=== PATIENT | male | born 1965 | race African-American/Black ===

== ENCOUNTER 2017-04-26 06:21 | Day surgery (SDC) | payer BC ==
[2017-04-10 17:52] VITALS: BMI 28.3
--- NOTE | 2017-04-25 17:56 | HP ---
DATE OF ADMISSION: 04/26/2017 DATE OF SURGERY: 04/26/2017 ADMISSION DIAGNOSIS: Chronic ethmoid and maxillary sinusitis, deviated septum, inferior turbinate hypertrophy. HISTORY OF PRESENT ILLNESS: This 52-year-old gentleman has had a longstanding history of nasal and sinus problems. He has primarily left-sided problems with pain and pressure as well as congestion and yellow mucoid drainage which is sometimes green. He gets a bad taste in his throat from thick post-nasal drainage. His sense of smell is fair. He has been on numerous antibiotics including a 28-day course of Cefdinir which did not give him significant improvement. He has had serial scans demonstrating an opacified left maxillary sinus for several years. Exam also demonstrates nasal polyp as well as marked deviation of the septum and turbinate hypertrophy. He is now admitted for surgery. PAST MEDICAL HISTORY: Primary medical doctor is Moriah Rick MD. Medical illnesses: Allergic rhinitis; diabetes, type 2; hypertension; and vertigo. MEDICATIONS: Include Ariadne, fluticasone. ALLERGIES: He has a swelling reaction to LISINOPRIL, which may be angioedema. PAST SURGICAL HISTORY: Includes tonsillectomy at age 5. He also had anesthesia for his dental treatment. BLEEDING HISTORY: Negative. FAMILY HISTORY: Negative for bleeding problems. His brother possibly had an anesthesia-related problem, possibly aspiration after surgery for a motorcycle accident. PHYSICAL EXAMINATION: General: Patient is a well-developed male in no acute distress. HEENT: Head is normal. Eyes are clear. Ears are unremarkable. The nose has markedly deviated septum to the left. Inferior turbinates are enlarged. There is a moderate-size polyp obstructing the left nasal airway, and these emanate from the middle meatus, and they are also visible in the sphenoethmoidal recess. The mouth and throat are unremarkable. CT scan of the paranasal sinuses performed at [facility] on August 29, 2016, demonstrated a totally opacified left maxillary antrum with effacement of the uncinate process consistent with chronic sinusitis. There is also primarily left-sided ethmoid sinus mucosal thickening. Polyps are present. There is moderate deviation of the septum to the left. IMPRESSION: Chronic sinusitis, deviation of the septum, and inferior turbinate hypertrophy. PLAN: Endoscopic sinus surgery to address ethmoid and maxillary sinuses as well as nasal septoplasty and submucous resection of inferior turbinates using image guidance. INFORMED CONSENT: Patient understands the indications, alternatives, nature, risks, and benefits of proposed surgery. Potential complications including, but not limited to, anesthesia, bleeding, infection, recurrence, numbness, hole in the septum, reduced sense of smell, eye injury, and brain injury were discussed in detail. He understands and accepts these risks and wishes to proceed with surgery. Questions were answered fully. ZAIN DÍAZ M.D. [id number]
[2017-04-26] MEDS ORDERED: BACITRACIN 15 GM TUBE TOPICAL OINTMENT ONE (07:35)
[2017-04-26] MEDS ORDERED: COCAINE HCL 4% TOPICAL SOLUTION 4 ML BOTTLE TP ONE ×2 (07:44→08:21)
[2017-04-26] MEDS ORDERED: LIDOCAINE 1%/EPI 1:100000 (20 ML MULTI DOSE VIAL) ONE (08:00)
--- NOTE | 2017-04-26 08:01 | HP ---
History & Physical Update - History History: No Change - Physical Physical: No Change - Assessment Assessment: No Change - Plan Plan: No Change
[2017-04-26] MEDS ORDERED: ceFAZolin SODIUM 1 GM VIAL IVPB ONE (08:16)
[2017-04-26] MEDS ORDERED: LIDOCAINE 1%/EPI 1:100000 (50 ML MULTI DOSE VIAL) INF ONE (08:21)
[2017-04-26] MEDS ORDERED: PROMETHAZINE HCL 25 MG/1 ML VIAL IVPUSH PRN (09:50)
[2017-04-26] MEDS ORDERED: oxyCODONE HCL 5 MG TABLET PO PRN (09:50)
[2017-04-26] MEDS ORDERED: ONDANSETRON 4 MG/2 ML VIAL IVPUSH PRN (09:50)
[2017-04-26] MEDS ORDERED: LACTATED RINGERS SOLUTION 1,000 ML IV SCH (10:00)
[2017-04-26] MEDS ORDERED: BACITRACIN 15 GM TUBE TOPICAL OINTMENT TP ONE (10:29)
[2017-04-26] MEDS ORDERED: TRIMETHOBENZAMIDE HCL 200MG/2ML INJ IM PRN (10:39)
--- NOTE | 2017-04-26 10:45 | OP ---
Operative Note - Note: Operative Date: 04/26/17 ([id number]) Pre-Operative Diagnosis: chronic maxillary and ethmoid sinusitis, deviated septum, inferior turbinate hypertrophy Operation: bilateral endoscopic ethmoidectomy, anterior, bilateral endoscopic maxillary antrostomy, with removal of tissue left (complex), nasal septoplasty, submucus resection of right inferior turbinate, therapeutic outfracture of left inferior turbinate with mural cauterization, image guidance Findings: extensive left maxillary sinusitis with pus and infected tissue, significant left polyposis, ethmoid sinusitis, deviated septum to left bony and cartilagenous, significant right inferior turbinate bony hypertrophy Implants: none Post-Operative Diagnosis: Same as Pre-op Surgeon: Myles Burgess Anesthesiologist/BENEFITS SPECIALIST RECRUITER: Amarilis Yeboah MD Anesthesia: General Specimens Removed: left nasal polyp, ethmoid and maxillary sinus tissue; right ethmoid sinus tissue; nasal septum; right inferior turbinate; bilateral ethmoid tissue (suction trap) Estimated Blood Loss (mls): 75 Blood Volume Replaced (mls): 0
[2017-04-26 11:50] VITALS: TEMP 99
[2017-04-26 14:44] VITALS: BP 135/80; PULSE 65
--- NOTE | 2017-04-26 23:21 | OP ---
DATE OF OPERATION: 04/26/2017 PREOPERATIVE DIAGNOSIS: Chronic maxillary and ethmoid sinusitis, deviated septum, inferior turbinate hypertrophy. PREOPERATIVE DIAGNOSIS: Chronic maxillary and ethmoid sinusitis, deviated septum, inferior turbinate hypertrophy. PROCEDURE: Bilateral endoscopic ethmoidectomy, anterior. Bilateral endoscopic maxillary antrostomy, with removal of tissue left (complex), nasal septoplasty, submucous resection of right inferior turbinate, therapeutic outfracture of left inferior turbinate with cauterization, image guidance. SURGEON: Zain Burgess M.D. ANESTHESIOLOGIST: Amarilis Yeboah M.D. ANESTHESIA: General via endotracheal tube. INDICATION: This 52-year-old male has had longstanding nasal and sinus problems which have failed to improve with appropriate medical therapy including a 28-day course of oral antibiotics. He has had obstruction, pain and pressure as well as drainage with a bad taste. Examination shows deviation of septum left as well as nasal polyposis on the left. CT scan demonstrates chronic sinusitis of the ethmoid maxillary sinuses with significant opacification of the left maxillary sinus with bowing of the medial wall. He is now brought to surgery for treatment. FINDINGS: Extensive left maxillary sinusitis with pus and infected tissue, significant left-sided polyposis, bilateral ethmoid sinusitis, deviated septum to the left, bony and cartilaginous, significant right inferior turbinate bone hypertrophy. PROCEDURE: Patient is brought to the operating room, placed on the operating table in supine position. General endotracheal anesthesia was induced to satisfactory level. He was prepped and draped in the usual fashion for surgery. The nose was inspected. Deviation of the septum was seen as well as turbinate hypertrophy primarily on the right side. Polyps were visible. Lidocaine 1% with epinephrine 1:100,000 was infiltrated in the antral septum. Cocaine 4% was packed in the nasal cavity with cottonoids. The [employer] image guidance system was utilized with the patient's CAT scan data. Registration was completed, and image guidance was used intermittently throughout the case to identify surgical landmarks and areas of dissection. A 0-degree telescope was then used and the nasal cavities inspected. The nasal septum was moderately deviated to the left side of obstruction. There was an inferior deviation and it went more further posteriorly. Significant left nasal polyposis was seen emanating from the middle meatus and posteriorly toward the nasopharynx. Significant inferior turbinate hypertrophy was present primarily on the right side. The nasopharynx was clear with a scar from prior adenoidectomy. Lidocaine with epinephrine was infiltrated in the middle turbinate and lateral nasal osorio. Additional cocaine 4% was packed up in the middle meatus. The right paranasal sinuses first addressed. The uncinate process was drawn forward and incised with a backbiting forceps, ethmoid forceps and the microdebrider was then used to remove the rest of the uncinate process and to perform anterior ethmoidectomy. The lamina papyracea and the fovea ethmoidalis were preserved, mildly diseased tissue was spared. The natural ostium was enlarged. The anterior of the right maxillary sinus was slightly edematous, but there were no irreversible lesions. Attention was then turned toward the left paranasal sinuses. Significant polyposis was removed piecemeal with the forceps. Anterior ethmoidectomy was performed with the ethmoid forceps and the microdebrider. The lamina papyracea and the fovea ethmoidalis were preserved. The fontanelle region was somewhat bulging and inflamed. A distinct ostium was not visible. Middle meatal antrostomy is created with the forceps. Maxillary sinus is entered. It is completely full of infected tissue as well as pus. A large amount of infected tissue was then removed from the left maxillary sinus using a combination of the 45-degree, 90-degree forceps as well as the 70-degree and 110-degree forceps. In addition to sending this tissue to pathology for routine studies, additional tissue was sent to microbiology for culture. The sinus was intermittently irrigated with saline. Eventually most of the maxillary sinus became . There was minimal residual edematous tissue primarily anteriorly. After completion of sinus treatment, attention was turned to the nasal septum. A right nasal septal incision was created. A right mucoperichondrial flap was elevated. Bony cartilaginous structure was identified, . Bilateral mucoperiosteal flaps are elevated. The inferior spur was primarily bony and cartilaginous. The inferior strip of cartilage was incised and removed. Deviated maxillary crest was then removed with the osteotome. Deviated vomer and perpendicular plate of the ethmoid was also removed with the forceps. After these maneuvers, the nasal septum was in a more midline position. Some cartilage was then scored to unbend it and then placed in the pocket to reconstitute the third layer. The incision was then closed with 4-0 chromic and a quilting suture of 4-0 chromic was also placed. Finally attention was turned to the inferior turbinates. The left inferior turbinate was minimally hypertrophic. This had already been indented by the deviated septum. Therapeutic outfracture and cauterization was performed with suction cautery. Finally, the right inferior turbinate was injected with lidocaine and epinephrine. An anterior incision was created and the inferior turbinate bone exposed. The elevator was used to separate the overlying soft tissue from the markedly hypertrophic and thickened turbinate bone. This was then removed in a submucous fashion for a distance of approximately 3 cm. Submucosal cauterization was performed with suction cautery. The turbinate incision was then closed with 4-0 chromic sutures. Final inspection demonstrated good hemostasis. Septum was straight, inferior airways were very patent, and the ethmoid maxillary sinuses were open. dressings were placed within the ethmoid bed. Folded Telfa gauze coated with bacitracin and joined with a silk suture were placed in the inferior nasal cavities. Patient tolerated the procedure well. He was then awakened from general anesthesia, transferred to PACU in stable condition. Estimated blood loss was 75 mL. He received crystalloid during the procedure. Specimens were sent to pathology including left nasal polyp, ethmoid maxillary sinus tissue, right ethmoid tissue, nasal septal tissue, and left inferior turbinate tissue which are all sent to pathology for routine studies. In addition, left maxillary sinus tissue was sent for culture to microbiology. There are no complications. ZAIN BURGESS M.D. [id number]
--- NOTE | 2017-05-02 11:55 | PATH ---
Surgical Pathology Report Patient Name: JOSE PHILLIPS [facility]. Rec. #: [id number] /Age/Gender: 1965 (Age: 52) / M Account: [id number] Location: [facility] SURGICAL Taken: 04/26/2017 Received: 04/26/2017 Reported: 05/02/2017 Physicians: Myles Burgess M.D. Specimen(s) Received A: RIGHT ETHMOID TISSUE B: LEFT ETHMOID TISSUE AND MAXILLARY POLYPOID TISSUE C: NASAL SEPTUM D: INFERIOR TURBINATE TISSUE E: BILATERAL ETHMOID TISSUE Clinical History Deviated nasal septum, chronic ethmoid and maxillary sinusitis, turbinate hypertrophy Final Diagnosis A. ETHMOID, RIGHT, EXCISION: FRAGMENTS OF RESPIRATORY MUCOSA WITH MILD CHRONIC INFLAMMATION AND BONE. B. ETHMOID AND MAXILLARY POLYPOID TISSUE, LEFT, EXCISION: FRAGMENTS OF SCHNEIDERIAN PAPILLOMA, INFLAMED, FAVOR INVERTED TYPE. C. NASAL SEPTUM, EXCISION: FRAGMENTS OF CARTILAGE AND BONE. D. INFERIOR TURBINATE, EXCISION: FRAGMENTS OF RESPIRATORY MUCOSA WITH MILD CHRONIC INFLAMMATION, FIBROUS TISSUE AND BONE. E. ETHMOID, BILATERAL, EXCISION: FRAGMENTS OF SCHNEIDERIAN PAPILLOMA, FAVOR INVERTED TYPE. FRAGMENTS OF RESPIRATORY MUCOSA WITH MILD CHRONIC INFLAMMATION. Electronically Signed Stefany Taylor M.D. Gross Description A. Received in formalin labeled "right ethmoid tissue," is a 0.8 x 0.7 x 0.2 cm aggregate of agosto soft tissue and possible bone fragments. The specimen is submitted in toto in one cassette, following decalcification. B. Received in formalin labeled "left ethmoid polyp and tissue," is a 6.5 x 6.0 x 0.5 cm aggregate of agosto polypoid soft tissue fragments. A small business sales representative portion is submitted in 3 cassettes. C. Received in formalin labeled "nasal septum," is a 1.3 x 1.2 x 0.3 cm aggregate of agosto fragments of cartilage and bone. The specimen is submitted in toto in one cassette, following decalcification. D. Received in formalin labeled "inferior turbinate tissue," is a 1.8 x 1.5 x 0.3 cm aggregate of agosto soft tissue and bone fragments. The specimen is submitted in toto in one cassette, following decalcification. E. Received in formalin labeled "bilateral ethmoid tissue," is a 1.8 x 1.7 x 0.3 cm aggregate of agosto soft tissue fragments admixed with blood clot. The specimen is submitted in toto in one cassette. 04/27/201704/27/2017
== END 2017-04-26 14:43 | disposition home or self-care (01) ==
LOC: JASU-SURG 06:21
PROVIDERS: ATTEND Otolaryngology
PROC: 09BV8ZZ Excision of Left Ethmoid Sinus, Via Natural or Artificial Opening Endoscopic (ICD-10-PCS; 2017-04-26)
PROC: 09BU8ZZ Excision of Right Ethmoid Sinus, Via Natural or Artificial Opening Endoscopic (ICD-10-PCS; 2017-04-26)
PROC: 099R8ZZ Drainage of Left Maxillary Sinus, Via Natural or Artificial Opening Endoscopic (ICD-10-PCS; 2017-04-26)
PROC: 099Q8ZZ Drainage of Right Maxillary Sinus, Via Natural or Artificial Opening Endoscopic (ICD-10-PCS; 2017-04-26)
PROC: 09BM8ZZ Excision of Nasal Septum, Via Natural or Artificial Opening Endoscopic (ICD-10-PCS; 2017-04-26)
PROC: 09SL8ZZ Reposition Nasal Turbinate, Via Natural or Artificial Opening Endoscopic (ICD-10-PCS; 2017-04-26)
PROC: 8E09XBZ Computer Assisted Procedure of Head and Neck Region (ICD-10-PCS; principal; 2017-04-26 08:00)
DX: J32.0 Chronic maxillary sinusitis (principal); J32.2 Chronic ethmoidal sinusitis; J34.2 Deviated nasal septum; J34.3 Hypertrophy of nasal turbinates
CPT/HCPCS: 87070; 87075; 87184; 87186; 87205; 88304-TC; 88305-TC; 88311-TC; 94760

== ENCOUNTER 2020-11-04 04:19 | Day surgery (SDC) | payer BC ==
[2020-11-03 11:14] VITALS: BMI 29.1
[2020-11-04 09:12] LABS: PH,URINE 5.5 (5.0-8.0); URINE APPEARANCE CLEAR; URINE BILIRUBIN NEGATIVE (NEGATIVE); URINE COLOR YELLOW; URINE GLUCOSE (UA) NEGATIVE (NEGATIVE); URINE KETONE TRACE (NEGATIVE); URINE LEUK ESTERASE NEGATIVE (NEGATIVE); URINE NITRITE NEGATIVE (NEGATIVE); URINE PROTEIN TRACE (NEGATIVE)
[2020-11-04 09:25] LABS: INR 0.95 (0.83-1.09); PROTHROMBIN TIME (PATIENT) 11.5 SEC (9.7-13.0)
[2020-11-04 09:27] LABS: ACTIVATED PTT 30.6 SECONDS (25.2-36.5)
[2020-11-04] MEDS ORDERED: ROPIVACAINE HCL 0.5% 30ML VIAL ONE (09:39)
[2020-11-04] MEDS ORDERED: MIDAZOLAM HCL 2 MG/2 ML SINGLE DOSE VIAL ONE ×3 (09:40→10:15)
[2020-11-04] MEDS ORDERED: ceFAZolin 2 GRAM PREMIX BAG IVPB ONE (10:16)
[2020-11-04] MEDS ORDERED: ceFAZolin SODIUM 1 GM VIAL ONE (10:17)
[2020-11-04] MEDS ORDERED: oxyCODONE HCL 5 MG TABLET PO PRN ×2 (10:43)
[2020-11-04] MEDS ORDERED: ONDANSETRON 4 MG/2 ML VIAL IVPUSH PRN (10:43)
[2020-11-04] MEDS ORDERED: LACTATED RINGERS SOLUTION 1,000 ML IV SCH (10:45)
[2020-11-04] MEDS ORDERED: PROPOFOL 20 ML ONE (10:52)
[2020-11-04 13:27] VITALS: BP 143/84; PULSE 70; TEMP 98.2
== END 2020-11-04 13:10 | disposition home or self-care (01) ==
LOC: JASU-SURG 04:19
PROVIDERS: ATTEND Orthopaedic Surgery
PROC: 0PB94ZZ Excision of Right Clavicle, Percutaneous Endoscopic Approach (ICD-10-PCS; 2020-11-04)
PROC: 0RNJ4ZZ Release Right Shoulder Joint, Percutaneous Endoscopic Approach (ICD-10-PCS; principal; 2020-11-04 10:30)
PROC: 0LQ14ZZ Repair Right Shoulder Tendon, Percutaneous Endoscopic Approach (ICD-10-PCS; 2020-11-04 10:30)
DX: M75.101 Unspecified rotator cuff tear or rupture of right shoulder, not specified as traumatic (principal)
CPT/HCPCS: 36415; 81003; 85610; 85730; 94760

== ENCOUNTER 2022-10-25 10:46 | Emergency (ER) | payer OTHER, BC ==
[2022-10-25 10:55] VITALS: BP 155/97; PULSE 86; RESP 18; TEMP 98.1; BMI 30.3
[2022-10-25] MEDS ORDERED: IBUPROFEN 600 MG TABLET (FP) PO ONE ×2 (11:41→12:00)
[2022-10-25] MEDS ORDERED: CYCLOBENZAPRINE HCL 10 MG TABLET (FP) PO ONE (11:41)
[2022-10-25] MEDS ORDERED: ACETAMINOPHEN 500 MG TABLET (FP) PO ONE (11:41)
[2022-10-25] MEDS ORDERED: LIDOCAINE 5% TOPICAL PATCH TP ONE (11:42)
[2022-10-25] MEDS ORDERED: CYCLOBENZAPRINE HCL 10 MG TABLET (FP) ONE (11:59)
[2022-10-25] MEDS ORDERED: LIDOCAINE 5% TOPICAL PATCH ONE (11:59)
[2022-10-25] MEDS ORDERED: ACETAMINOPHEN 500 MG TABLET (FP) ONE (12:00)
[2022-10-25] MEDS ORDERED: LIDOCAINE PATCH REMOVAL MC SCH (22:00)
== END 2022-10-25 12:26 | disposition home or self-care (01) ==
LOC: JERFT 10:46
DX: M25.511 Pain in right shoulder (principal); M54.2 Cervicalgia
CPT/HCPCS: 99282-25

== ENCOUNTER 2023-11-04 00:36 | Emergency (ER) | payer BC, OTHER ==
[2023-11-04 00:53] VITALS: TEMP 98; BMI 30.3
[2023-11-04] MEDS ORDERED: ACETAMINOPHEN 325 MG TABLET (FP) ONE ×2 (01:38→07:14)
[2023-11-04] MEDS ORDERED: LIDOCAINE 4% PATCH TP ONE (01:39)
[2023-11-04] MEDS: ACETAMINOPHEN 325 MG TABLET (FP) PO ONE (01:41)
[2023-11-04] MEDS: LIDOCAINE 5% TOPICAL PATCH TP ONE (01:41)
[2023-11-04] MEDS: LIDOCAINE PATCH REMOVAL MC ONE (04:31)
[2023-11-04 05:16] LABS: BASO % 0.5 % (0-2.0); EOS % 0.3 % (0-4.5); HEMATOCRIT 39.4 % (35.4-49); HEMOGLOBIN 12.9 GM/dL (11.7-16.9); LYMPH % 11.4 % (8-40); MCH 28.4 pg (25.7-33.7); MCHC 32.8 g/dl (32.0-35.9); MEAN CELL VOLUME 86.5 fl (80-96); MEAN PLT VOLUME 7.6 fl (7.5-11.1); MONO % 5.7 % (3.8-10.2); NEUT % 82.1 % (42.8-82.8); PLATELET COUNT 369 10^3/uL (134-434); RBC 4.56 M/mm3 (4.00-5.60); RDW 13.4 % (11.9-15.9); WHITE BLOOD COUNT 12.5 K/mm3 (4.0-10.0)
[2023-11-04 05:18] LABS: POTASSIUM 4.5 mmol/L (3.5-5.1)
[2023-11-04 05:20] LABS: CALCIUM 9.8 mg/dL (8.5-10.1)
[2023-11-04 05:21] LABS: ALBUMIN 4.5 g/dl (3.4-5.0); BLOOD UREA NITROGEN 17.1 mg/dL (7-18)
[2023-11-04 05:23] LABS: CREATININE 1.1 mg/dL (0.55-1.3)
[2023-11-04 05:25] LABS: BILIRUBIN,TOTAL 0.5 mg/dL (0.2-1)
[2023-11-04 05:26] LABS: TOT PROT 8.5 g/dl (6.4-8.2)
[2023-11-04] MEDS: ACETAMINOPHEN 500 MG TABLET (FP) PO ONE (07:19)
[2023-11-04] MEDS ORDERED: KETOROLAC TROMETHAMINE 30 MG/1 ML VIAL ONE (11:13)
[2023-11-04 11:14] VITALS: BP 137/80; PULSE 66; RESP 20
[2023-11-04] MEDS: KETOROLAC TROMETHAMINE 30 MG/1 ML VIAL IM ONE (11:23)
== END 2023-11-04 14:04 | disposition home or self-care (01) ==
LOC: JER 00:36
PROC: 3E0233Z Introduction of Anti-inflammatory into Muscle, Percutaneous Approach (ICD-10-PCS; principal; 2023-11-04)
DX: S80.911A Unspecified superficial injury of right knee, initial encounter (principal); M25.561 Pain in right knee; W10.9XXA Fall (on) (from) unspecified stairs and steps, initial encounter
CPT/HCPCS: 36415; 73502-TC-RT-FY; 73560-TC-RT-FY; 75635-TC; 80053; 85025; 99285-25; Q9967

== ENCOUNTER 2023-11-23 07:55 | Day surgery (SDC) | payer BC ==
[2023-11-20 09:48] VITALS: BMI 29.7
[2023-11-23] MEDS ORDERED: LIDOCAINE HCL/PF 2% SDV 5ML VIAL ONE (08:11)
[2023-11-23] MEDS ORDERED: MIDAZOLAM HCL 2 MG/2 ML SINGLE DOSE VIAL ONE (08:11)
[2023-11-23] MEDS ORDERED: PROPOFOL 20 ML ONE ×3 (08:11→11:54)
[2023-11-23] MEDS ORDERED: DEXAMETHASONE SOD PHOSPHATE 4 MG/1 ML VIAL ONE (08:15)
[2023-11-23] MEDS ORDERED: BUPIVACAINE HCL/PF 0.5% (5MG/ML) 10 ML VIAL ONE (09:15)
[2023-11-23] MEDS ORDERED: ceFAZolin SODIUM 1 GM VIAL ONE (09:59)
[2023-11-23] MEDS ORDERED: TRANEXAMIC ACID 1000 MG/10 ML VIAL ONE (10:33)
[2023-11-23] MEDS ORDERED: ROCURONIUM BROMIDE 50 MG/5 ML SYRINGE ONE (10:37)
[2023-11-23] MEDS ORDERED: PROMETHAZINE HCL 25 MG/1 ML VIAL IVPB PRN (11:16)
[2023-11-23] MEDS ORDERED: ONDANSETRON 4 MG/2 ML VIAL IVPUSH PRN (11:16)
[2023-11-23] MEDS ORDERED: oxyCODONE HCL 5 MG TABLET PO PRN ×3 (11:16)
[2023-11-23] MEDS ORDERED: LACTATED RINGERS SOLUTION 1,000 ML IV SCH (11:30)
[2023-11-23] MEDS ORDERED: KETOROLAC TROMETHAMINE 30 MG/1 ML VIAL ONE (11:35)
[2023-11-23] MEDS ORDERED: ACETAMINOPHEN INJECTION 100 ML IVPB ONE (12:18)
[2023-11-23] MEDS ORDERED: FENTANYL CITRATE/PF 50 MCG/ML VIAL ONE ×4 (12:18→13:05)
[2023-11-23] MEDS: ACETAMINOPHEN 1000 MG/100 ML BAG IVPB ONE (12:20)
[2023-11-23] MEDS ORDERED: oxyCODONE HCL 5 MG TABLET ONE (13:27)
[2023-11-23] MEDS: oxyCODONE HCL 5 MG TABLET PO PRN (13:30)
[2023-11-23 14:06] VITALS: RESP 16; TEMP 96.9
[2023-11-23 14:27] VITALS: BP 150/94; PULSE 78
== END 2023-11-23 14:27 | disposition home or self-care (01) ==
LOC: FASU 07:55
PROVIDERS: ATTEND Orthopaedic Surgery Sports Medicine
PROC: 0LQL0ZZ Repair Right Upper Leg Tendon, Open Approach (ICD-10-PCS; principal; 2023-11-23 10:27)
DX: S76.111A Strain of right quadriceps muscle, fascia and tendon, initial encounter (principal); X58.XXXA Exposure to other specified factors, initial encounter; Y93.9 Activity, unspecified; Y92.9 Unspecified place or not applicable
CPT/HCPCS: 94760; C1713; J0131